=== PATIENT | female | born 1970 | race Caucasian/White ===

== ENCOUNTER 2020-08-06 16:01 | Emergency (ER) | payer OTHER ==
[~2020-08-06] VITALS: Ht 167.6 cm; Wt 81.6 kg
[2020-08-06 16:26] VITALS: BP 150/77
[2020-08-06] MEDS ORDERED: TDAP [DIPH/PERTUSSIS/TET] 0.5 ML VIAL IM ONE ×2 (16:30→16:32)
[2020-08-06] MEDS ORDERED: MUPIROCIN OINT 2% 22 GM TUBE TP ONE (17:00)
[2020-08-06] MEDS ORDERED: MUPIROCIN OINT 2% 22 GM TUBE ONE (17:06)
--- NOTE | 2020-08-06 17:38 | NUR ---
Patient discharged to home in stable condition. Written and verbal after care instructions given. Patient verbalizes understanding of instruction.
== END 2020-08-06 17:37 | disposition home or self-care (01) ==
LOC: ER 16:10
DX: T23.102A Burn of first degree of left hand, unspecified site, initial encounter (principal); F41.9 Anxiety disorder, unspecified; F32.9 Major depressive disorder, single episode, unspecified; X19.XXXA Contact with other heat and hot substances, initial encounter; Y93.G3 Activity, cooking and baking; Y92.89 Other specified places as the place of occurrence of the external cause; Y99.8 Other external cause status
CPT/HCPCS: 16020; 90471; 90715; 99283; A4217; A6403